=== PATIENT | male | born 1975 | race African-American/Black ===

== ENCOUNTER 2016-11-12 10:29 | Emergency (ER) | payer OTHER ==
[~2016-11-12] VITALS: Ht 188 cm; Wt 72.6 kg
--- NOTE | ~2016-11-12 | CR170 ---
[facility] A Service of [facility] RADIOLOGY TEXT RESULTS PATIENT: NADEEN CORTEZ LOCATION: [facility] : 79 UNIT #: [id number] AGE: [address]: Kendal Esteban APRN SEX: M ORDER DR: [id number] [facility] [address] [place], [place] [address] [id number] E MR#: [id number] Acc #: [id number] NAME: NADEEN CORTEZ : 1975 SEX: M STUDY DATE/TIME: 11/12/2016 11:17 UNIT: [facility] ROOM: STUDY DESCRIPTION: CR Knee 2 Views Rt Attending Physician: Kendal Esteban A.P.R.N. Referring Physician: No Ref Unknown Ordering Physician: Ed Doc Luz Maria Yanez Primary Care Physician: No Primary Care Physician MEDICAL IMAGING REPORT This report is preliminary unless electronic signature is present EXAM Right knee 11/12/2016 HISTORY 41-year-old male with right knee pain for 3 months. No specific injury. COMPARISON none FINDINGS 2 views of the right knee demonstrate no acute fracture or dislocation. No joint effusion. Joint spaces are normally maintained. Soft tissues are unremarkable. IMPRESSION Unremarkable right knee. Dictated by... Shravan Rabago M.D. THIS IS AN ELECTRONICALLY VERIFIED REPORT Shravan Rabago M.D. at 11/13/2016 8:58 AM JOSÉ MANUEL/edgard TD: 11/12/2016 16:09 JOB #: [id number] MEDICAL IMAGING REPORT Page 1 of 1 COPY
--- NOTE | ~2016-11-12 | CR151 ---
[facility] A Service of [facility] RADIOLOGY TEXT RESULTS PATIENT: NADEEN CORTEZ LOCATION: [facility] : 79 UNIT #: [id number] AGE: [address]: Kendal Esteban APRN SEX: M ORDER DR: [id number] [facility] [address] [place], [place] [address] [id number] E MR#: [id number] Acc #: [id number] NAME: NADEEN CORTEZ : 1975 SEX: M STUDY DATE/TIME: 11/12/2016 11:17 UNIT: [facility] ROOM: STUDY DESCRIPTION: CR Hip Min 2 Views Rt Attending Physician: Kendal Esteban A.P.R.N. Referring Physician: Primary Care Physician No Ordering Physician: Ed Doctor [id number] [facility] Primary Care Physician: Primary Care Physician No MEDICAL IMAGING REPORT This report is preliminary unless electronic signature is present EXAM Right hip, 11/12/2016 HISTORY 41-year-old male with right hip pain for 3 months. No specific injury. COMPARISON None FINDINGS Two views of the right hip demonstrate questionable sclerotic changes in the right femoral head. Underlying avascular necrosis is not excluded. Further evaluation with non-emergent right hip MRI recommended. No evidence of acute fracture or dislocation. Bony pelvis, sacrum, and SI joints are intact. Joint spaces are normally maintained. Left hip appears unremarkable. Soft tissues are within normal limits. IMPRESSION 1. No acute fracture or dislocation. 2. Questionable sclerotic changes in the right femoral head. Underlying avascular necrosis is not excluded and further evaluation with non-emergent right hip MRI is suggested. Dictated by... Shravan Rabago M.D. THIS IS AN ELECTRONICALLY VERIFIED REPORT Shravan Rabago M.D. at 11/13/2016 8:58 AM Emmie TD: 11/12/2016 16:05 JOB #: [id number] [facility] A Service of [facility] RADIOLOGY TEXT RESULTS PATIENT: NADEEN CORTEZ LOCATION: [facility] #: [id number] : 79 UNIT #: [id number] AGE: [address]: Kendal Esteban APRN SEX: M ORDER DR: MEDICAL IMAGING REPORT Page 1 of 1 COPY
[~2016-11-12 10:29] MED LIST: IBUPROFEN800 MG PO; PHENERGAN W/CO120 ML PO; PHENERGAN25 MG PO
== END 2016-11-12 13:07 | disposition home or self-care (01) ==
LOC: CED 10:29 → CFTX 10:29
DX: M25.551 Pain in right hip (principal); J45.909 Unspecified asthma, uncomplicated
CPT/HCPCS: 29530; 73502; 73560; 99283